=== PATIENT | male | born 1945 | race Caucasian/White ===

== ENCOUNTER 2016-07-09 08:18 | Day surgery (SDC) | payer OTHER ==
--- NOTE | ~2016-07-09 | EGD ---
EGD REPORT [facility] [address] [place] [address] NAME: WIL PULIDO : [birth year] STATUS : REG [facility]#: [id number] AGE: 70 ADM/REG DATE : 07/09/16 MR#: [id number] REPORT SERV DATE: 07/09/16 DICTATED BY: RILEY WALSH DATE: 07/09/16 REPORT STATUS : Draft [facility]: [facility] DATE: 07/09/16 [facility] Patient Name: Wil Pulido Date of : 1945 Attending MD: RILEY WALSH MD Procedure Date No Time: 07/09/2016 Procedure: Colonoscopy Indications: Screening for colorectal malignant neoplasm Referring MD: Mark Marin Medicines: as per anesthesia Complications: No immediate complications. Procedure: Pre-Anesthesia Assessment: - ASA Grade Assessment: III - A patient with severe systemic disease. After I obtained informed consent, the scope was passed under direct vision. Throughout the procedure, the patient's blood pressure, pulse, and oxygen saturations were monitored continuously. The PCF [id number] was introduced through the anus and advanced to the cecum, identified by appendiceal orifice and ileocecal valve. The colonoscopy was performed without difficulty. The patient tolerated the procedure. The quality of the bowel preparation was fair. Findings: The perianal and digital rectal examinations were normal. A few small-mouthed diverticula were found in the sigmoid colon. Internal hemorrhoids were found during endoscopy and were mild. Impression: - Diverticulosis in the sigmoid colon. - Internal hemorrhoids. Recommendation: - Repeat colonoscopy in 10 years for surveillance. Procedure Code(s): --- Professional --- 75493, Colonoscopy, flexible, proximal to splenic flexure; diagnostic, with or without collection of specimen(s) by brushing or washing, with or without colon decompression (separate procedure) Diagnosis Code(s): --- Professional --- K64.8, Other hemorrhoids K57.30, Diverticulosis of large intestine without perforation or abscess without bleeding Z12.11, Encounter for screening for malignant neoplasm EGD REPORT [address] [address] NAME: WIL PULIDO : [birth year] STATUS : REG [facility]#: [id number] AGE: 70 ADM/REG DATE : 07/09/16 MR#: [id number] REPORT SERV DATE: 07/09/16 DICTATED BY: RILEY WALSH. DATE: 07/09/16 REPORT STATUS : Draft TRANSCRIBED BY: [employer] DATE: 07/09/16 of colon CPT copyright 2013 [employer]. All rights reserved. The codes documented in this report are preliminary and upon fryline attendant review may be revised to meet current compliance requirements. RILEY WALSH MD 07/09/2016 10:23 AM This report has been signed electronically. Number of Addenda: 0 Note Initiated On: 07/09/2016 9:55 AM Scope Withdrawal Time 0 hours 7 minutes 38 seconds [address] [address]
[~2016-07-09 08:18] MED LIST: ARMOUR THYRO30 MG PO; DIOVAN320 MG PO; FLOMAX4 PO; L ARGININE PO; L-LYSINE500 M1 PO; MAX25 PO; NORV10 PO; PROBIOTIC PO; VITA C PO
== END 2016-07-09 23:59 | disposition home or self-care (01) ==
LOC: DMU 08:18
PROVIDERS: Internal Medicine Gastroenterology
PROC: 0DJD8ZZ Inspection of Lower Intestinal Tract, Via Natural or Artificial Opening Endoscopic (ICD-10-PCS; principal; 2016-07-09 09:30)
DX: Z12.11 Encounter for screening for malignant neoplasm of colon (principal); K57.30 Diverticulosis of large intestine without perforation or abscess without bleeding; K64.8 Other hemorrhoids; K21.9 Gastro-esophageal reflux disease without esophagitis; I10 Essential (primary) hypertension; I89.0 Lymphedema, not elsewhere classified; E66.01 Morbid (severe) obesity due to excess calories; E03.9 Hypothyroidism, unspecified; H91.90 Unspecified hearing loss, unspecified ear; Z87.891 Personal history of nicotine dependence; Z90.89 Acquired absence of other organs; Z98.890 Other specified postprocedural states; Z79.899 Other long term (current) drug therapy